=== PATIENT | female | born 1985 | race Caucasian/White ===

== ENCOUNTER 2022-11-06 17:58 | Emergency (ER) | payer MEDICAID ==
[~2022-11-06] VITALS: Ht 167.6 cm; Wt 91.6 kg
[2022-11-06 18:04] VITALS: BP 119/78
--- NOTE | 2022-11-06 18:50 | NUR ---
URINE COLLECTED AND HANDED TO RESIDENTIAL SUPPORT SPECIALIST
[2022-11-06 19:46] LABS: BASOPHILS % (AUTO) 0.4 % (0.0-2.0); EOSINOPHILS # (AUTO) 0.3 K/uL (0-0.4); EOSINOPHILS % (AUTO) 4.1 % (0.0-4.0); HEMOGLOBIN 12.7 g/dL (12.0-16.0); LYMPHOCYTES # (AUTO) 2.7 K/uL (2.5-16.5); LYMPHOCYTES % (AUTO) 38.9 % (20.5-51.1); MEAN CORPUSCULAR HEMOGLOBIN 29 pg (27-31); MEAN CORPUSCULAR HGB CONC 33 g/dL (33-37); MEAN CORPUSCULAR VOLUME 86.4 fL (80-94); MONOCYTES # (AUTO) 0.4 K/uL (0.8-1.0); MONOCYTES % (AUTO) 5.6 % (1.7-9.3); NEUTROPHILS # (AUTO) 3.5 K/uL (1.8-7.7); PLATELET COUNT (AUTO) 208 K/uL (140-450); WHITE BLOOD COUNT (AUTO) 6.9 K/uL (4.8-10.8)
--- NOTE | 2022-11-06 19:56 | NUR ---
PT TAKEN TO BED #1 S/P ULTRASOUND
[2022-11-06] MEDS ORDERED: ACETAMINOPHEN 325 MG TAB PO ONE (20:05)
[2022-11-06 20:09] LABS: ALBUMIN 3.4 g/dL (3.4-5.0); ANION GAP 14.4 (8-16); CARBON DIOXIDE 21.3 mmol/L (21-32); CREATININE 0.6 mg/dL (0.6-1.3); POTASSIUM 3.7 mmol/L (3.5-5.1); TOTAL BILIRUBIN 0.2 mg/dL (0.0-1.0)
--- NOTE | 2022-11-06 20:24 | NUR ---
PT NOT FOUND IN ROOM. CALLED NUMBER LISTED FILE PT STATED "I HAD TO LEAVE, I HAVE A SICK KID AT HOME THAT NO ONE COULD TAKE CARE OF." PT ELOPED AT THIS TIME. DR. VILLARREAL NOTIFIED.
[2022-11-06 21:27] LABS: APPEARANCE,URINE CLEAR (CLEAR); COLOR,URINE YELLOW (YELLOW); PH,URINE 8.5 (5.0-9.0)
[2022-11-06 21:28] LABS: BILIRUBIN,URINE NEGATIVE (NEGATIVE); BLOOD, URINE NEGATIVE (NEGATIVE); LEUKOCYTE ESTERASE ,URINE NEGATIVE (NEGATIVE); NITRITE, URINE NEGATIVE (NEGATIVE); UGLUCOSE NEGATIVE (NEGATIVE)
== END 2022-11-06 20:24 | disposition left against medical advice (07) ==
LOC: MED 17:58
DX: O26.892 Other specified pregnancy related conditions, second trimester (principal); R10.84 Generalized abdominal pain; Z3A.23 23 weeks gestation of pregnancy; Z90.49 Acquired absence of other specified parts of digestive tract; Z98.890 Other specified postprocedural states
CPT/HCPCS: 36415; 76815; 80053; 81003; 81025; 83690; 84702; 85025; 99284; Q0092